=== PATIENT | male | born 1960 | race American Indian/Alaskan Native ===

== ENCOUNTER 2016-10-20 16:54 | Emergency (ER) | payer OTHER, MEDICARE ==
[2016-10-20 17:09] VITALS: RESP 18; TEMP 97.7; O2SAT 99
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
[2016-10-20 17:46] VITALS: BMI 34.2
[2016-10-20 18:05] VITALS: BP 128/79; PULSE 79
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
== END 2016-10-20 19:10 | disposition home or self-care (01) ==
LOC: ED 16:54
DX: M54.5 Low back pain (principal); I10 Essential (primary) hypertension; E11.9 Type 2 diabetes mellitus without complications; Z72.0 Tobacco use
CPT/HCPCS: 72110; 82948; 96372; 99283; J1885

== ENCOUNTER 2017-05-25 15:21 | Inpatient (IN) | payer MEDICARE, OTHER ==
[2017-05-25 15:37] VITALS: BMI 33.2
--- NOTE | 2017-05-25 15:48 | ED PDOC ---
Arrival/HPI - General Chief Complaint: Shortness Of Breath Time Seen by Provider: 05/25/17 15:31 Historian: Patient - History of Present Illness Narrative History of Present Illness (Text): 05/25/17 15:45 A 56 year old male, whose past medical history includes sarcoidosis, diabetes, hypertension, spinal fusion, presents to the emergency department complaining of shortness of breath for 2 weeks. Patient was waiting to see PMD at her office when he developed mild chest discomfort and diaphoresis. He reports that he felt faint and lightheadedness. Denies LOC. Patient was sent into the emergency room for further evaluation. Patient denies any loss of consciousness , fever, chills, nausea, vomiting, abdominal pain or an other complaints. PMD: Dr. Song Time/Duration: Other (2 weeks) Symptom Course: Unchanged Quality: Other Context: Home, Other Past Medical History - Provider Review Nursing Documentation Reviewed: Yes - Infectious Disease Hx of Infectious Diseases: None - Cardiac Hx Hypertension: Yes - Pulmonary Other/Comment: sarcoidosis - Neurological Hx Neurological Disorder: No - HEENT Hx HEENT Disorder: No - Renal Hx Renal Disorder: No - Endocrine/Metabolic Hx Diabetes Mellitus Type 2: Yes - Hematological/Oncological Hx Blood Disorders: No - Integumentary Hx Dermatological Disorder: No - Musculoskeletal/Rheumatological Hx Musculoskeletal Disorders: Yes Hx Spinal Stenosis: Yes - Gastrointestinal Hx Gastrointestinal Disorders: Yes - Genitourinary/Gynecological Hx Genitourinary Disorders: No - Psychiatric Hx Depression: No Hx Substance Use: No - Surgical History Other/Comment: Spinal fusion./neck - Anesthesia Hx Anesthesia: Yes Hx Anesthesia Reactions: No Hx Malignant Hyperthermia: No - Suicidal Assessment Feels Threatened In Home Enviroment: No Family/Social History - Physician Review Nursing Documentation Reviewed: Yes Family/Social History: No Known Family HX Smoking Status: Light Smoker < 10 Cigarettes Daily Hx Alcohol Use: Yes Hx Substance Use: No Substance used: cocaine, no longer uses. Hx Substance Use Treatment: No Allergies/Home Meds Allergies/Adverse Reactions: Allergies No Known Allergies Allergy (Verified 05/25/17 15:46) Home Medications: Home Meds Medication Instructions Recorded Confirmed Oxycodone HCl/Acetaminophen 10 mg PO QID PRN 08/27/16 05/25/17 [Percocet 10-325 mg Tablet] Prednisone [Deltasone] 10 mg PO DAILY 05/25/17 05/25/17 Review of Systems - Physician Review All systems were reviewed & negative as marked: Yes - Review of Systems Constitutional: absent: Fevers, Night Sweats Respiratory: SOB Cardiovascular: Chest Pain Gastrointestinal: absent: Abdominal Pain, Nausea, Vomiting Neurological: Other (lightheadedness) Endocrine: Diaphoresis Physical Exam Vital Signs Reviewed: Yes Vital Signs Temp Pulse Resp BP Pulse Ox 05/25/17 18:32 72 17 123/76 100 05/25/17 15:39 97.6 F 78 18 143/81 100 05/25/17 15:30 18 100 05/25/17 15:22 97.6 F 77 18 143/81 100 Temperature: Afebrile Blood Pressure: Normal Pulse: Regular Respiratory Rate: Normal Appearance: Positive for: Well-Appearing, Non-Toxic, Comfortable Pain Distress: None Mental Status: Positive for: Alert and Oriented X 3 Finger Stick Blood Glucose: 94 - Systems Exam Head: Present: Atraumatic, Normocephalic Pupils: Present: PERRL Extroacular Muscles: Present: EOMI Conjunctiva: Present: Normal Mouth: Present: Moist Mucous Membranes Neck: Present: Normal Range of Motion Respiratory/Chest: Present: Good Air Exchange, Wheezes (scant wheezes at bases) , Rales (scant crackles at bases). No: Respiratory Distress, Accessory Muscle Use Cardiovascular: Present: Regular Rate and Rhythm, Normal S1, S2. No: Murmurs Abdomen: Present: Normal Bowel Sounds. No: Tenderness, Distention, Peritoneal Signs Back: Present: Normal Inspection Upper Extremity: Present: Normal Inspection, NORMAL PULSES. No: Cyanosis, Edema Lower Extremity: Present: Normal Inspection, NORMAL PULSES. No: Edema, CALF TENDERNESS Neurological: Present: GCS=15, CN II-XII Intact, Speech Normal Skin: Present: Warm, Dry, Normal Color. No: Rashes Psychiatric: Present: Alert, Oriented x 3, Normal Insight, Normal Concentration Medical Decision Making ED Course and Treatment: 05/25/17 15:45 Impression: A 56 year old male with shortness of breath and chest discomfort. Plan: -- Chest xray -- Labs -- Aspirin -- Reassess and disposition Prior Visits: Notes and results from previous visits were reviewed. Patient had a stress test in 2010 which was negative and an echo in 2017 which showed short LVH otherwise grossly normal. Progress Notes: EKG shows NSR at 70 BPM with normal intervals, no acute ST changes. Interpreted by me. Report Date : 05/25/2017 16:17:31 Procedure: Chest xray Dictator : Felicity Ramon MD IMPRESSION: No active pulmonary disease. 05/25/17 16:22 Cxray negative 05/25/17 16:33 Trop x 1 negative. BNP WNL. Spoke to Dr. Song and will transder to tele observation 05/25/17 17:[address] Song, states to admit to telemetry observation for near-syncope. - Lab Interpretations Lab Results: 05/25/17 15:55 05/25/17 15:55 Lab Results 05/25/17 15:55: Sodium 141, Potassium 4.4, Chloride 102, Carbon Dioxide 35 H, Anion Gap 8 L, BUN 15, Creatinine 1.1, Est GFR ( Amer) > 60, Est GFR (Non -Af Amer) > 60, Random Glucose 106, Calcium 9.9, Phosphorus 4.6 H, Magnesium 2.1 , Total Bilirubin 0.6, AST 36, ALT 43, Alkaline Phosphatase 72, Total Creatine Kinase 669 H, CK-MB (CK-2) 12.8 H, CK-MB (CK-2) % 1.9 L, Troponin I < 0.01 D, NT-Pro-B Natriuret Pep 24.5, Total Protein 7.1, Albumin 3.9, Globulin 3.1, Albumin/Globulin Ratio 1.3 05/25/17 15:55: PT 12.0, INR 1.10 H, APTT 26.4 05/25/17 15:55: WBC 6.0 D, RBC 4.96, Hgb 15.2, Hct 46.2, MCV 93.1, MCH 30.6, MCHC 32.9, RDW 13.5, Plt Count 283, MPV 9.7, Gran % 39.3 L, Lymph % (Auto) 46.9 H, [place] % (Auto) 10.0 H, Eos % (Auto) 3.6, Baso % (Auto) 0.2, Gran # 2.37, Lymph # 2.8, [place] # 0.6, Eos # 0.2, Baso # 0.01 I have reviewed the lab results: Yes - RAD Interpretation Radiology Orders: 05/25/17 15:45 CHEST PORTABLE [RAD] Stat - Medication Orders Current Medication Orders: Acetaminophen (Tylenol 325mg Tab) 650 mg PO Q6H PRN PRN Reason: Fever >100.4 F Albuterol/Ipratropium (Duoneb 3 Mg/0.5 Mg (3 Ml) Ud) 3 ml IH [id number] WOOD Albuterol/Ipratropium (Duoneb 3 Mg/0.5 Mg (3 Ml) Ud) 3 ml IH [id number] WOOD Aspirin (Ecotrin) 81 mg PO DAILY WOOD Ceftriaxone Sodium (Rocephin 1 Gram Ivpb) 1 gm in 100 mls @ 100 mls/hr IVPB DAILY WOOD PRN Reason: Protocol Insulin Human Lispro (Humalog Med) 0 units SC ACHS WOOD PRN Reason: Protocol Methylprednisolone (Solu-Medrol) 30 mg IV Q12 WOOD Oxycodone/Acetaminophen (Percocet 10/325 Mg Tab) 5 tab PO QID PRN PRN Reason: Pain, severe (8-10) Discontinued Medications Aspirin (Aspirin Chewable) 324 mg PO STAT STA Stop: 05/25/17 15:47 Last Admin: 05/25/17 16:03 Dose: 324 mg - Scribe Statement The provider has reviewed the documentation as recorded by the Thanh Marino Provider Scribe Attestation: All medical record entries made by the Scribe were at my direction and personally dictated by me. I have reviewed the chart and agree that the record accurately reflects my personal performance of the history, physical exam, medical decision making, and the department course for this patient. I have also personally directed, reviewed, and agree with the discharge instructions and disposition. Disposition/Present on Arrival - Present on Arrival Any Indicators Present on Arrival: No History of DVT/PE: No History of Uncontrolled Diabetes: No Urinary Catheter: No History of Decub. Ulcer: No History Surgical Site Infection Following: None - Disposition Have Diagnosis and Disposition been Completed?: Yes Diagnosis: Near syncope Disposition: HOSPITALIZED Disposition Time: 15:39 Patient Plan: Observation Condition: FAIR
[2017-05-25 16:07] LABS: BASO # 0.01 K/mm3 (0.0-2.0); BASO % 0.2 % (0.0-3.0); EOS # 0.2 (0.0-0.7); EOS % 3.6 % (1.5-5.0); GRAN # 2.37 (1.4-6.5); GRAN % 39.3 % (50.0-68.0); HEMATOCRIT 46.2 % (42.0-52.0); LYMPH # 2.8 (1.2-3.4); LYMPH % 46.9 % (22.0-35.0); MEAN CELL VOLUME 93.1 fl (80.0-105.0); MEAN CORPUSCULAR HEMOGLOBIN 30.6 pg (25.0-35.0); MEAN CORPUSCULAR HGB CONC 32.9 g/dl (31.0-37.0); MEAN PLATELET VOLUME 9.7 fl (7.0-11.0); MONO # 0.6 (0.1-0.6); RED CELL DISTRIBUTION WIDTH 13.5 % (11.5-14.5)
[2017-05-25 16:17] LABS: ALB/GLOB RATIO 1.3 (1.1-1.8); ALKALINE PHOSPHATASE 72 U/L (38-126); ALT/SGPT 43 U/L (7-56); AST/SGOT 36 U/L (17-59); BILIRUBIN,TOTAL 0.6 mg/dL (0.2-1.3); BLOOD UREA NITROGEN 15 mg/dL (7-21); CALCIUM 9.9 mg/dL (8.4-10.5); CARBON DIOXIDE 35 mmol/L (21-33); CHLORIDE 102 mmol/L (98-107); GFR AFRICAN-AMERICAN > 60; GLUCOSE,RANDOM 106 mg/dL (70-110); MAGNESIUM 2.1 mg/dL (1.7-2.2); PHOSPHOROUS 4.6 mg/dL (2.5-4.5); POTASSIUM 4.4 mmol/L (3.6-5.0); SODIUM 141 mmol/L (132-148); TOTAL PROTEIN 7.1 g/dL (5.8-8.3)
--- NOTE | 2017-05-25 16:19 | RAD ---
HISTORY: Shortness of breath COMPARISON: 09/12/2016. FINDINGS: LUNGS: The lungs are well inflated and clear. PLEURA: No significant pleural effusion identified, no pneumothorax apparent. CARDIOVASCULAR: Normal. OSSEOUS STRUCTURES: No significant abnormalities. Status post ACDF in the lower cervical spine. VISUALIZED UPPER ABDOMEN: Normal. OTHER FINDINGS: None. IMPRESSION: No active pulmonary disease.
[2017-05-25 16:21] LABS: INR 1.1 (0.93-1.08); PARTIAL THROMBOPLASTIN TIME 26.4 Seconds (25.1-36.5)
[2017-05-25 16:31] LABS: TROPONIN I < 0.01 ng/mL
[2017-05-25] MEDS ORDERED: Oxycodone/Acetaminophen 10/325 mg Tab PO PRN (18:50)
[2017-05-25] MEDS: MethylPREDNISolone 40 mg Vial IV SCH (21:07)
[2017-05-25] MEDS: Albuterol-Ipratrop 3 mg / 0.5 (3 ml) UD IH SCH (21:07)
[2017-05-25] MEDS: Insulin Lispro (humaLOG) MEDIUM Coverage SC SCH (22:53)
--- NOTE | 2017-05-25 23:03 | CARD ---
APPROVED REPORT EKG Measurement Heart [id number] <Conclusion> Normal sinus rhythm Low voltage QRS Septal infarct, age undetermined Abnormal ECG
[2017-05-26 00:40] LABS: TROPONIN I 0.02 ng/mL
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
[2017-05-26 07:21] LABS: BASO # 0.01 K/mm3 (0.0-2.0); BASO % 0.2 % (0.0-3.0); GRAN # 5.01 (1.4-6.5); GRAN % 79.9 % (50.0-68.0); HEMATOCRIT 45.3 % (42.0-52.0); LYMPH % 15.9 % (22.0-35.0); MEAN CELL VOLUME 92.3 fl (80.0-105.0); MEAN CORPUSCULAR HEMOGLOBIN 30.1 pg (25.0-35.0); MEAN CORPUSCULAR HGB CONC 32.7 g/dl (31.0-37.0); MONO # 0.3 (0.1-0.6); RED CELL DISTRIBUTION WIDTH 13.2 % (11.5-14.5); WHITE BLOOD COUNT 6.3 10^3/ul (4.5-11.0)
[2017-05-26 07:36] LABS: ALB/GLOB RATIO 1.2 (1.1-1.8); ALKALINE PHOSPHATASE 84 U/L (38-126); ALT/SGPT 44 U/L (7-56); AST/SGOT 37 U/L (17-59); BILIRUBIN,TOTAL 0.4 mg/dL (0.2-1.3); BLOOD UREA NITROGEN 16 mg/dL (7-21); CALCIUM 9.3 mg/dL (8.4-10.5); CARBON DIOXIDE 29 mmol/L (21-33); CHLORIDE 101 mmol/L (98-107); GFR AFRICAN-AMERICAN > 60; GLUCOSE,RANDOM 210 mg/dL (70-110); MAGNESIUM 2.1 mg/dL (1.7-2.2); SODIUM 137 mmol/L (132-148); TOTAL PROTEIN 7.1 g/dL (5.8-8.3)
[2017-05-26 07:42] LABS: FREE T4 0.78 ng/dL (0.78-2.19)
[2017-05-26] MEDS: Albuterol-Ipratrop 3 mg / 0.5 (3 ml) UD IH SCH ×3 (07:52→14:01)
[2017-05-26 07:55] LABS: THYROID STIMULATING HORMONE 0.16 mIU/mL (0.46-4.68)
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
--- NOTE | 2017-05-26 09:13 | CT ---
PROCEDURE: CT HEAD WITHOUT CONTRAST. HISTORY: syncope COMPARISON: 09/09/2016 CT head TECHNIQUE: Axial computed tomography images were obtained through the head/brain without intravenous contrast. Radiation dose: Total exam DLP = 1453 mGy-cm. This CT exam was performed using one or more of the following dose reduction techniques: Automated exposure control, adjustment of the mA and/or kV according to patient size, and/or use of iterative reconstruction technique. FINDINGS: HEMORRHAGE: No intracranial hemorrhage. BRAIN: No mass effect or edema. No atrophy or chronic microvascular ischemic changes. VENTRICLES: Unremarkable. No hydrocephalus. CALVARIUM: Unremarkable. PARANASAL SINUSES: Unremarkable as visualized. No significant inflammatory changes. MASTOID AIR CELLS: Unremarkable as visualized. No inflammatory changes. OTHER FINDINGS: None. IMPRESSION: No acute findings
[2017-05-26] MEDS: MethylPREDNISolone 40 mg Vial IV SCH ×2 (10:01→21:45)
[2017-05-26] MEDS: cefTRIAXone 1 gm 1 GM/100 ML BAG IVPB SCH (10:02)
[2017-05-26] MEDS: Insulin Lispro (humaLOG) MEDIUM Coverage SC SCH ×4 (10:02→21:49)
[2017-05-26] MEDS: Oxycodone/Acetaminophen 10/325 mg Tab PO PRN ×2 (12:16→21:44)
--- NOTE | 2017-05-26 14:11 | PN ---
SUBJECTIVE: Patient is 56 years old, seen and examined, lying in bed, seems to be much better, still has cough and congestion, actively smoke. PHYSICAL EXAMINATION VITAL SIGNS: Afebrile. Pulse 80, respirations 20, blood pressure 122/74. LUNGS: Bilateral expiratory rhonchi. HEART: S1, S2, audible. ABDOMEN: Soft, obese, nontender. No rebound, no guarding. NEUROLOGIC: He is awake, alert, oriented, communicative, and ambulatory. LABORATORY DATA: WBC 6.3, hemoglobin 14.8, hematocrit 45, platelets 295. Chemistry: Sodium 137, potassium 5.0, chloride 101, CO2 of 29, BUN 16, creatinine 1.1, blood sugar of 195. Urine drug screen positive for cocaine. CT scan of the chest done is negative. ASSESSMENT: 1. Near syncope. 2. Drug abuse. 3. History of sarcoidosis. 4. Asthmatic bronchitis. PLAN: Continue patient on nebulizer treatment. Patient is on aspirin 81 daily. Continue Rocephin and steroid. Consult weight tester. He was told to be closely following up with the weight tester on periodic basis, but patient is very noncompliant. He admits that he should be following but he does not. It was reemphasized he is still smoker, and it was emphasized to quit smoking and he says he is working on it. Nallely Song MD
--- NOTE | 2017-05-26 17:21 | US ---
PROCEDURE: Bilateral carotid artery duplex ultrasound HISTORY: Carotid stenosis syncope PHYSICIAN(S): Iglesia Cummins MD. TECHNIQUE: Duplex sonography and color-flow Doppler were used to evaluate the carotid bifurcations and limited segments of the vertebral arteries bilaterally. The exam is limited by body habitus. FINDINGS: There is mild smooth heterogeneous plaque noted at the carotid bifurcations bilaterally. The peak systolic velocity in the proximal right internal carotid artery is 80 cm/sec. This corresponds to a 20 to 39% proximal right ICA stenosis. Normal systolic velocities are noted in the proximal right external carotid artery. There is antegrade flow in the right vertebral artery. The peak systolic velocity in the proximal left internal carotid artery is 87 cm/sec. This corresponds to a 20 to 39% proximal left ICA stenosis. Normal systolic velocities are noted in the proximal left external carotid artery. There is antegrade flow in the left vertebral artery. IMPRESSION: 1. Bilateral 20-39% proximal ICA stenoses. 2. Antegrade flow in both vertebral arteries. 3. Limited study.
[2017-05-27] MEDS: Albuterol-Ipratrop 3 mg / 0.5 (3 ml) UD IH SCH ×4 (01:46→20:52)
[2017-05-27] MEDS: Oxycodone/Acetaminophen 10/325 mg Tab PO PRN ×3 (06:25→21:21)
[2017-05-27] MEDS ORDERED: Albuterol-Ipratrop 3 mg / 0.5 (3 ml) UD IH PRN (07:15)
[2017-05-27] MEDS: Budesonide 0.5 mg/2 ml Inhal Susp UD IH SCH ×2 (07:32→20:52)
--- NOTE | 2017-05-27 07:56 | CON ---
PULMONARY CONSULTATION REFERRING PHYSICIAN: Dr. Song. REASON FOR CONSULTATION: Chronic obstructive pulmonary disease. HISTORY OF PRESENT ILLNESS: The patient is a 56-year-old male, with past medical history significant for chronic obstructive pulmonary disease, positive extensive smoking history-still smokes, sarcoidosis (in remission), diabetes mellitus, hypertension, spinal fusion, who presents to [facility] with a 1-week history of increasing shortness of breath at rest, dyspnea on exertion, cough, and sputum production. There is no history of chest pain, coughing up of blood, or chest pain-made worse with deep respirations. There is no history of temperatures, chills or infectious exposure. There is no history of night sweats, weight loss or appetite change prior to the above events. No history of leg or calf pains. The patient did have an episode of weakness and diaphoresis-while at Dr. Song's office. No history of syncope. No history of recent travel or trauma. REVIEW OF SYSTEMS: No history of nausea, vomiting or diarrhea. No acute urinary symptoms. No new musculoskeletal complaints. Rest of the review of systems negative. ALLERGIES: NO KNOWN ALLERGIES. SOCIAL HISTORY: Positive for extensive tobacco usage-still smokes. No alcohol. FAMILY HISTORY: No inheritable diseases. HOME MEDICATIONS: Include prednisone and Percocet. PHYSICAL EXAMINATION: GENERAL: The patient appears comfortable at rest. He is not short of breath. He is not using accessory muscles for breathing. VITAL SIGNS: (Last noted in the computer): Temperature is 97.6, pulse 84, respirations 17, blood pressure 141/73. Oxygen saturation on nasal cannula ranges between 95% to 100%. HEENT: Normocephalic and atraumatic. NECK: No JVD. CARDIOVASCULAR: Positive S1, S2. No S3 gallop. LUNGS: Decreased breath sounds at the bases. Scattered mild rhonchi and wheezing bilaterally are appreciated. EXTREMITIES: No clubbing, cyanosis or edema. Calves are nontender to palpation. GI: Abdomen is soft, nontender and nondistended. Bowel sounds are positive. SKIN: No acute rash. NEUROLOGIC: Limited at the present time. PERTINENT LABORATORY DATA: CAT scan of the chest was done on 05/25/2017. There is no acute pulmonary infiltrate noted. There is a linear scar/atelectasis noted at the right base. There is also a small (6 mm) nodule abutting the minor fissure, in the right middle lobe-unchanged from previous CAT scan. There is no lymphadenopathy. CBC: White count 6.3, hemoglobin 14.8, hematocrit 45.3, platelets of 295. Complete metabolic profile: Glucose 210. Rest of the metabolic profiles within normal limits. IMPRESSION: 1. Acute bronchitis. 2. Chronic obstructive pulmonary disease. 3. Sarcoidosis (in remission). 4. Solitary pulmonary nodule-right middle lobe. 5. Diabetes mellitus. PLAN: The patient presents to [facility] with a 1-week history of worsening pulmonary symptoms. In addition, as above, the patient did experience weakness and diaphoresis-while at Dr. Song's office-prior to being sent to the emergency room. I did review the CAT scan of the chest-as above. The scan does show a small pulmonary nodule in the right middle lobe-unchanged from previous exam. There are no acute changes. On physical exam, the patient is in [id number] bronchospasm. I will continue with the current nebulizer treatments and add inhaled Pulmicort this morning. I will also continue with the current intravenous steroids for now. The patient also admits to paroxysms of coughing. Therefore, I will add a q.2 hour nebulizer dosage/treatment to be used on a p.r.n. basis. The patient is strongly advised to stop his smoking. He agrees. Additional pulmonary intervention will be based on the clinical status of the patient. I will discuss the above with Dr. Song. Thank you very much for this pulmonary consultation. David Lake MD HARVEY
[2017-05-27] MEDS: Insulin Lispro (humaLOG) MEDIUM Coverage SC SCH ×4 (09:09→23:42)
[2017-05-27] MEDS: MethylPREDNISolone 40 mg Vial IV SCH ×2 (09:11→21:21)
[2017-05-27] MEDS: cefTRIAXone 1 gm 1 GM/100 ML BAG IVPB SCH (09:39)
[2017-05-27 17:17] VITALS: RESP 20
[2017-05-28] MEDS: Albuterol-Ipratrop 3 mg / 0.5 (3 ml) UD IH SCH ×3 (01:29→13:26)
[2017-05-28 04:06] VITALS: O2SAT 97
[2017-05-28] MEDS: Oxycodone/Acetaminophen 10/325 mg Tab PO PRN ×2 (06:30→14:11)
[2017-05-28] MEDS: Budesonide 0.5 mg/2 ml Inhal Susp UD IH SCH (07:36)
[2017-05-28] MEDS: Insulin Lispro (humaLOG) MEDIUM Coverage SC SCH ×2 (07:58→12:15)
[2017-05-28 09:10] VITALS: BP 137/80; PULSE 81; TEMP 98
[2017-05-28] MEDS: MethylPREDNISolone 40 mg Vial IV SCH (09:56)
[2017-05-28] MEDS: cefTRIAXone 1 gm 1 GM/100 ML BAG IVPB SCH (11:20)
--- NOTE | 2017-05-28 12:38 | PN ---
SUBJECTIVE: The patient is 56 years old, seen and examined, sitting in chair, comfortable. Still has scanty cough, but much better than before. PHYSICAL EXAMINATION VITAL SIGNS: He is afebrile, pulse 81, respirations 20, and blood pressure 145/96. LUNGS: Bilateral good airflow. No rhonchi or crackles. HEART: S1 and S2 audible. ABDOMEN: Soft and nontender. No rebound. No guarding. NEUROLOGIC: He is awake, alert, oriented, communicative, and ambulatory. LABORATORY DATA: Blood sugar is 171. ASSESSMENT: 1. Chronic obstructive pulmonary disease exacerbation. 2. Asthmatic bronchitis. 3. Status post near syncope. 4. Cocaine abuse. 5. History of sarcoidosis. PLAN: Currently, the patient is on nebulizer treatment. We will cut down his steroids, and if he remains stable, we will make a discharge plan in a.m. Nallely Song MD
--- NOTE | 2017-05-28 13:38 | PN ---
DATE: SUBJECTIVE: The patient appears very comfortable this morning. He is not short of breath at rest. OBJECTIVE: VITAL SIGNS: Temperature is 97.9, pulse is 88, respirations are 18, blood pressure is 138/78, and oxygen saturation on room air is 97%. HEENT: Normocephalic, atraumatic. No JVD. CARDIOVASCULAR: Positive S1, S2. No S3 or gallop. LUNGS: Improved breath sounds at the bases. Much less rhonchi. No wheezing this morning. EXTREMITIES: No clubbing, cyanosis or edema. Calves are nontender to palpation. GASTROINTESTINAL: Abdomen is soft, nontender, and nondistended. Bowel sounds are positive. SKIN: No acute rash. NEUROLOGIC: Limited at the present time. IMPRESSION: 1. Acute bronchitis. 2. Chronic obstructive pulmonary disease. 3. Sarcoidosis (in remission). 4. Solitary pulmonary nodule - right middle lobe. 5. Diabetes mellitus. PLAN: The patient appears very comfortable this morning. He is not short of breath at rest. He states to feeling much much better overall. On physical exam, his bronchospasm continues to resolve. In addition, there is no significant alveolar-arterial gradient. Oxygen saturation on room air is now 97%. I will continue the current nebulizer treatments and low-dose intravenous steroids (decreased yesterday) for now. The patient is for probable discharge in the near future. I have given him my card/information for a followup appointment. He fully agrees. Clinical status of the patient is significantly improved overall. I will discuss the above with Dr. Song. David Lake MD MTDD
--- NOTE | 2017-05-29 13:23 | DS ---
SUBJECTIVE: The patient is 56-year-old, seen and examined, lying in bed, seems to be comfortable, still has cough and congestion, and bringing thick yellow phlegm. PHYSICAL EXAMINATION: VITAL SIGNS: He is afebrile. Pulse 81, respirations 20, blood pressure 137/80. LUNGS: Bilateral few expiratory rhonchi. HEART: S1 and S2 audible. ABDOMEN: Soft, nontender, obese, no hepatosplenomegaly. NEUROLOGIC: He is awake, alert and oriented, communicative. LABORATORY DATA: His urine drug screen was positive for cocaine. ASSESSMENT: 1. History of sarcoidosis. 2. Asthmatic bronchitis. 3. Chronic obstructive pulmonary disease exacerbation. 4. Pulmonary nodule, right middle lobe. 5. Ghi-ptrojqx-hmmouspvv diabetes. 6. Drug abuse. PLAN: The patient is clinically stable. He wants to go home. I will discharge him on Levaquin 500 daily. He has nebulizing machine at home. I gave him cough medicine, Bromfed DM 1 teaspoon t.i.d. and Medrol Dosepak. I will follow up in the office in a week or two. He is advised to follow with Dr. Lake. Nallely Song MD
== END 2017-05-28 15:36 | disposition home or self-care (01) | DRG 192 ==
LOC: ED 15:21 → ERH 17:00 → 2RSO 23:44 → OBSVTOIN 05-26 15:32 → 5RSO 05-26 20:34
PROVIDERS: ADMIT Internal Medicine; ATTEND Internal Medicine
DX: J44.1 Chronic obstructive pulmonary disease with (acute) exacerbation (principal); I10 Essential (primary) hypertension; D86.9 Sarcoidosis, unspecified; J20.9 Acute bronchitis, unspecified; J44.0 Chronic obstructive pulmonary disease with (acute) lower respiratory infection; F14.10 Cocaine abuse, uncomplicated; Z98.1 Arthrodesis status; F17.200 Nicotine dependence, unspecified, uncomplicated; R40.2412 Glasgow coma scale score 13-15, at arrival to emergency department; Z87.81 Personal history of (healed) traumatic fracture; M50.30 Other cervical disc degeneration, unspecified cervical region; E09.9 Drug or chemical induced diabetes mellitus without complications; T38.0X5A Adverse effect of glucocorticoids and synthetic analogues, initial encounter; R91.1 Solitary pulmonary nodule

== ENCOUNTER 2017-08-06 19:15 | Emergency (ER) | payer MEDICARE, OTHER ==
[2017-08-06 19:15] VITALS: BMI 33.2
[2017-08-06 19:24] VITALS: RESP 18; TEMP 98.3
[2017-08-06] MEDS ORDERED: HYDROmorphone 1 mg/ml ISec IM STA ×2 (19:30→21:59)
[2017-08-06] MEDS ORDERED: TDAP Vaccine 0.5 mL Syr IM ONE (19:31)
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
[2017-08-06 21:34] VITALS: BP 147/95; PULSE 80; O2SAT 96
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
== END 2017-08-06 23:15 | disposition home or self-care (01) ==
LOC: ED 19:15
DX: S01.511A Laceration without foreign body of lip, initial encounter (principal); S02.40CA Maxillary fracture, right side, initial encounter for closed fracture; Y08.89XA Assault by other specified means, initial encounter; Y92.89 Other specified places as the place of occurrence of the external cause; Z23 Encounter for immunization
CPT/HCPCS: 12051; 70450; 70480; 72131; 90471; 90715; 96372; 99284; J1170

== ENCOUNTER 2017-08-17 15:01 | Inpatient (IN) | payer MEDICARE, OTHER ==
[2017-08-17] MEDS ORDERED: Albuterol-Ipratrop 3 mg / 0.5 (3 ml) UD IH STA (15:13)
[2017-08-17 15:19] VITALS: BMI 34.5
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
[2017-08-17] MEDS ORDERED: cefTRIAXone 1 gm 1 GM/100 ML BAG IVPB STA (15:27)
[2017-08-17 15:29] LABS: ARTERIAL BLOOD GAS HCO3 26.6 mmol/L (21-28); ARTERIAL BLOOD GAS HEMOGLOBIN 14.2 g/dL (11.7-17.4); ARTERIAL BLOOD GAS O2 CAPACITY 19.3 mL/dl (16-24); ARTERIAL BLOOD GAS O2 CONTENT 17.8 ML/dl (15-23); ARTERIAL BLOOD GAS O2 SAT 92.2 % (95-98); ARTERIAL BLOOD GAS PCO2 44 mm/Hg (35-45); ARTERIAL BLOOD GAS PH 7.39 (7.35-7.45)
[2017-08-17 15:44] LABS: BASO # 0.02 K/mm3 (0.0-2.0); BASO % 0.5 % (0.0-3.0); EOS # 0.1 (0.0-0.7); EOS % 2.1 % (1.5-5.0); GRAN # 2.04 (1.4-6.5); GRAN % 47.5 % (50.0-68.0); HEMOGLOBIN 14.7 g/dL (14.0-18.0); LYMPH # 1.1 (1.2-3.4); LYMPH % 24.5 % (22.0-35.0); MEAN CELL VOLUME 93.1 fl (80.0-105.0); MEAN CORPUSCULAR HEMOGLOBIN 30.7 pg (25.0-35.0); MEAN PLATELET VOLUME 9.7 fl (7.0-11.0); MONO # 1.1 (0.1-0.6); MONO % 25.4 % (1.0-6.0); PLATELET COUNT 280 10^3/uL (120.0-450.0); RBC 4.79 10^6/uL (3.5-6.1); RED CELL DISTRIBUTION WIDTH 13.7 % (11.5-14.5); WHITE BLOOD COUNT 4.3 10^3/ul (4.5-11.0)
--- NOTE | 2017-08-17 15:48 | RAD ---
HISTORY: sob COMPARISON: 08/11/2017 FINDINGS: LUNGS: No active pulmonary disease. PLEURA: No significant pleural effusion identified, no pneumothorax apparent. CARDIOVASCULAR: Normal. OSSEOUS STRUCTURES: No significant abnormalities. VISUALIZED UPPER ABDOMEN: Normal. OTHER FINDINGS: None. IMPRESSION: No active disease.
[2017-08-17 15:56] LABS: INR 1.12 (0.93-1.08); PARTIAL THROMBOPLASTIN TIME 30.8 Seconds (25.1-36.5); PROTHROMBIN TIME 12.8 SECONDS (9.4-12.5)
[2017-08-17 15:59] LABS: ALB/GLOB RATIO 1.1 (1.1-1.8); ALT/SGPT 44 U/L (7-56); AST/SGOT 41 U/L (17-59); BLOOD UREA NITROGEN 10 mg/dL (7-21); CALCIUM 9.1 mg/dL (8.4-10.5); GFR AFRICAN-AMERICAN > 60; GFR NON-AFRICAN AMERICAN > 60
[2017-08-17 16:07] LABS: TROPONIN I < 0.01 ng/mL
[2017-08-17 16:59] LABS: B-TYPE NATRIURETIC PEPTIDE 56.6 pg/mL (0-450); CK MB% 0.8 % (2.5-3.0); CK-MB 7.2 ng/mL (0.0-3.6)
[2017-08-17 17:03] LABS: ATYPICAL LYMPHOCYTE 2 % (0.0-0.0); EOSINOPHIL 3 % (0.0-3.0); LYMPHOCYTE 32 % (22.0-35.0); MONOCYTE 13 % (1.0-6.0); NEUTROPHIL 50 % (50.0-70.0)
--- NOTE | 2017-08-17 17:51 | CARD ---
APPROVED REPORT EKG Measurement Heart [id number] <Conclusion> Sinus tachycardia Low voltage QRS Borderline ECG
[2017-08-17] MEDS: Albuterol-Ipratrop 3 mg / 0.5 (3 ml) UD IH SCH (20:12)
--- NOTE | 2017-08-17 21:18 | CT ---
EXAM: CT Chest Without Intravenous Contrast CLINICAL HISTORY: 57 years old, male; Signs and symptoms; Shortness of breath; Additional info: SOB TECHNIQUE: Axial computed tomography images of the chest without intravenous contrast. All CT scans at this facility use one or more dose reduction techniques, viz.: automated exposure control; ma/kV adjustment per patient size (including targeted exams where dose is matched to indication; i.e. head); or iterative reconstruction technique. Coronal and sagittal reformatted images were created and reviewed. COMPARISON: CT - CHEST W/O CONTRAST 2017-05-26 08:19 FINDINGS: Limitations: Lack of intravenous contrast. Lungs: Mild atelectasis/scarring. No consolidation. Few nodules and/or focal scarring, up to 0.6 cm, grossly stable. Pleural space: No pneumothorax. No significant effusion. Heart: No cardiomegaly. No significant pericardial effusion. Bones/joints: Postsurgical changes of cervical spine. Several healed rib fractures. Degenerative changes of spine. Soft tissues: Mild gynecomastia. Vasculature: Unremarkable. No aneurysm. Lymph nodes: No pathologically enlarged lymph nodes. IMPRESSION: 1. No acute findings. 2. Pulmonary nodules. For low-risk patients consider a follow-up chest CT at 15-21 months. For high-risk patients (smoking history or other known risk factors) recommend follow-up chest CT at 15-21 months. If unchanged, no further follow-up. 3. Incidental/non-acute findings are described above.
[2017-08-17] MEDS: MethylPREDNISolone 40 mg Vial IV SCH (21:34)
[2017-08-17] MEDS: Oxycodone/Acetaminophen 10/325 mg Tab PO PRN (21:34)
[2017-08-17] MEDS ORDERED: Influenza Vaccine 60 mcg/0.5 mL SYR (4YR UP) IM ONE (22:19)
[2017-08-17] MEDS ORDERED: Pneumococcal 23-Valent Vaccine IM ONE (22:19)
[2017-08-18] MEDS: Albuterol-Ipratrop 3 mg / 0.5 (3 ml) UD IH SCH ×4 (01:04→19:47)
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
[2017-08-18] MEDS: Pantoprazole 40 mg EC Tab PO SCH (06:17)
[2017-08-18] MEDS: cefTRIAXone 1 gm 1 GM/100 ML BAG IVPB SCH (10:06)
[2017-08-18] MEDS: MethylPREDNISolone 40 mg Vial IV SCH ×2 (10:06→22:23)
[2017-08-18] MEDS: Benzocaine/Menthol (Cepacol) Lozenge MT PRN ×2 (10:15→22:24)
[2017-08-18] MEDS: Oxycodone/Acetaminophen 10/325 mg Tab PO PRN ×2 (13:09→19:19)
--- NOTE | 2017-08-18 14:12 | PN ---
DATE: SUBJECTIVE: The patient is 57 years old. Seen and examined lying in bed. He states his cough is a little better. Still has wheezing and bringing phlegm. No nausea or vomiting. No diarrhea. PHYSICAL EXAMINATION: VITAL SIGNS: He is afebrile, pulse 88, respirations 21, blood pressure 138/83. LUNGS: Bilateral expiratory rhonchi, diffuse, posteriorly more pronounced. HEART: S1 and S2 audible. ABDOMEN: Soft, obese, nontender. No rebound. No guarding. NEUROLOGIC: The patient is awake, alert, oriented. Able to communicate. LABORATORY EXAM: WBC IS 4.3, hemoglobin 14, hematocrit 44, platelet 280. Chemistry: Sodium 139, potassium 4.0, chloride 102, CO2 of 26, BUN 10, creatinine 1.1, blood sugar of 100, calcium 9.1. Blood sugar today morning at 11:00 a.m. is 140. Flu test is negative. ASSESSMENT: 1. Asthmatic bronchitis. 2. Sarcoidosis. 3. Chronic obstructive pulmonary disease. 4. Hca-pbchzyy-tykanocue diabetes. 5. Hypertension. PLAN: The patient has still wheezing and short of breath. We will change it to admission. Continue nebulizer treatment. Continue steroid. I will add metformin. I will continue insulin coverage. We will reevaluate in the a.m. Nallley Song MD
[2017-08-18 16:11] VITALS: RESP 20
[2017-08-19] MEDS: Albuterol-Ipratrop 3 mg / 0.5 (3 ml) UD IH SCH ×4 (01:24→19:54)
[2017-08-19 04:33] LABS: BARBITURATES, UR NEGATIVE (NEGATIVE); BENZODIAZEPINES, UR NEGATIVE (NEGATIVE); OPIATES, UR NEGATIVE (NEGATIVE); PHENCYCLIDINE, UR NEGATIVE (NEGATIVE)
[2017-08-19] MEDS: Oxycodone/Acetaminophen 10/325 mg Tab PO PRN ×2 (06:05→18:23)
[2017-08-19] MEDS: Benzocaine/Menthol (Cepacol) Lozenge MT PRN ×2 (06:05→18:13)
[2017-08-19] MEDS: Pantoprazole 40 mg EC Tab PO SCH (06:05)
[2017-08-19] MEDS: MethylPREDNISolone 40 mg Vial IV SCH ×2 (10:17→22:31)
[2017-08-19] MEDS: cefTRIAXone 1 gm 1 GM/100 ML BAG IVPB SCH (10:17)
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
[2017-08-20] MEDS: Albuterol-Ipratrop 3 mg / 0.5 (3 ml) UD IH SCH ×3 (01:36→13:21)
[2017-08-20] MEDS: Benzocaine/Menthol (Cepacol) Lozenge MT PRN ×2 (04:22→10:31)
[2017-08-20] MEDS: Oxycodone/Acetaminophen 10/325 mg Tab PO PRN ×2 (04:22→09:47)
[2017-08-20] MEDS: Pantoprazole 40 mg EC Tab PO SCH (05:38)
[2017-08-20 07:35] VITALS: BP 120/70; PULSE 84; TEMP 99.1; O2SAT 94
[2017-08-20] MEDS: MethylPREDNISolone 40 mg Vial IV SCH (09:43)
[2017-08-20] MEDS ORDERED: Cefpodoxime (Vantin) 200 mg Tab PO SCH (10:00)
--- NOTE | 2017-08-21 12:47 | DS ---
HISTORY OF PRESENT ILLNESS: Patient is 57 years old, seen and examined. Seems to be doing a lot better. No nausea or vomiting. No diarrhea. Fever and chills have gone. Cough and congestion is better. PHYSICAL EXAMINATION: VITAL SIGNS: . Temperature 99.1, pulse 84, respirations 20, blood pressure 120/70. LUNGS: Bilateral fair airflow. No rhonchi or crackle. HEART: S1 and S2 audible. ABDOMEN: Soft, obese, nontender. No rebound. No guarding. NEUROLOGIC: Patient is awake, alert, oriented, able to communicate. LABORATORY DATA: Urine drug test positive for cocaine. Flu test is negative. ASSESSMENT AND PLAN: 1. Asthmatic bronchitis. 2. Exertional dyspnea. 3. Hypertension. 4. Xhy-gcjnhot-osvsxmhmc diabetes. PLAN: Patient is being discharged home today. He has been discharged on doxycycline 100 mg twice a day and Medrol Dosepak and he will follow up in the office in a week or two. Nallely Song MD
== END 2017-08-20 14:57 | disposition home or self-care (01) | DRG 202 ==
LOC: ED 15:01 → ERH 16:44 → 5RSO 19:07 → OBSVTOIN 08-18 12:10
PROVIDERS: ADMIT Internal Medicine; ATTEND Internal Medicine
DX: J20.9 Acute bronchitis, unspecified (principal); J44.0 Chronic obstructive pulmonary disease with (acute) lower respiratory infection; J44.1 Chronic obstructive pulmonary disease with (acute) exacerbation; S02.401A Maxillary fracture, unspecified side, initial encounter for closed fracture; D86.9 Sarcoidosis, unspecified; E11.9 Type 2 diabetes mellitus without complications; I10 Essential (primary) hypertension; E78.00 Pure hypercholesterolemia, unspecified; E78.5 Hyperlipidemia, unspecified; R09.02 Hypoxemia; S01.511A Laceration without foreign body of lip, initial encounter; Z79.84 Long term (current) use of oral hypoglycemic drugs; Z87.440 Personal history of urinary (tract) infections; F17.210 Nicotine dependence, cigarettes, uncomplicated; Z98.1 Arthrodesis status

== ENCOUNTER 2018-05-28 10:36 | Inpatient (IN) | payer MEDICARE, OTHER ==
[2018-05-28 10:36] VITALS: BMI 33.2
--- NOTE | 2018-05-28 11:29 | RAD ---
Date of service: 05/28/2018 HISTORY: SOB COMPARISON: 08/17/2017 FINDINGS: LUNGS: No active pulmonary disease. PLEURA: No significant pleural effusion identified, no pneumothorax apparent. CARDIOVASCULAR: No aortic atherosclerotic calcification present. Normal cardiac size. No pulmonary vascular congestion. OSSEOUS STRUCTURES: No significant abnormalities. VISUALIZED UPPER ABDOMEN: Normal. OTHER FINDINGS: None. IMPRESSION: No active disease.
[2018-05-28] MEDS: Albuterol-Ipratrop 3 mg / 0.5 (3 ml) UD IH SCH ×3 (12:01→15:33)
[2018-05-28 12:07] LABS: BASO # 0.02 K/mm3 (0.0-2.0); BASO % 0.3 % (0.0-3.0); EOS # 0.8 (0.0-0.7); EOS % 14.2 % (1.5-5.0); GRAN # 2.32 (1.4-6.5); GRAN % 40.6 % (50.0-68.0); HEMOGLOBIN 14.5 g/dL (14.0-18.0); LYMPH # 2.1 (1.2-3.4); MEAN CELL VOLUME 92.7 fl (80.0-105.0); MEAN CORPUSCULAR HEMOGLOBIN 29.5 pg (25.0-35.0); MEAN CORPUSCULAR HGB CONC 31.8 g/dl (31.0-37.0); MEAN PLATELET VOLUME 9.8 fl (7.0-11.0); MONO # 0.5 (0.1-0.6); MONO % 8.9 % (1.0-6.0); RBC 4.92 10^6/uL (3.5-6.1); RED CELL DISTRIBUTION WIDTH 13.9 % (11.5-14.5); WHITE BLOOD COUNT 5.7 10^3/uL (4.5-11.0)
[2018-05-28 12:29] LABS: ALB/GLOB RATIO 1.1 (1.1-1.8); ALBUMIN 3.7 g/dL (3.0-4.8); ALT/SGPT 38 U/L (7-56); AST/SGOT 37 U/L (17-59); BLOOD UREA NITROGEN 12 mg/dL (7-21); CALCIUM 9.1 mg/dL (8.4-10.5); GFR NON-AFRICAN AMERICAN > 60
[2018-05-28 12:40] LABS: B-TYPE NATRIURETIC PEPTIDE 114 pg/mL (0-450); TROPONIN I < 0.01 ng/mL
[2018-05-28 12:51] LABS: CK MB% 1.4 % (2.5-3.0); CK-MB 12.1 ng/mL (0.0-3.6)
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
[2018-05-28] MEDS ORDERED: Albuterol-Ipratrop 3 mg / 0.5 (3 ml) UD IH PRN (13:16)
[2018-05-28] MEDS: Azithromycin 500MG/NS 250ml 500 MG/250 ML BAG IVPB SCH (15:02)
[2018-05-28] MEDS: POLYETHYLENE GLYCOL 3350 17 GM/Dose PACKET PO SCH (15:24)
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
[2018-05-28] MEDS: Oxycodone/Acetaminophen 5/325 mg Tab PO PRN ×2 (17:37→22:39)
[2018-05-28] MEDS: MethylPREDNISolone 40 mg Vial IV SCH (17:37)
[2018-05-28] MEDS: Insulin Reg-HIGH-Coverage SC SCH ×2 (17:38→22:26)
--- NOTE | 2018-05-28 19:43 | CARD ---
APPROVED REPORT Date of service: 05/28/2018 EKG Measurement Heart [id number] [place] [id number] <Conclusion> Normal sinus rhythm Low voltage QRS Borderline ECG
[2018-05-28] MEDS ORDERED: guaiFENesin 100 mg/5 ml Syrup UD PO STA (23:38)
[2018-05-29] MEDS: MethylPREDNISolone 40 mg Vial IV SCH ×4 (01:20→21:18)
[2018-05-29] MEDS: Albuterol-Ipratrop 3 mg / 0.5 (3 ml) UD IH SCH ×5 (01:41→20:50)
[2018-05-29] MEDS: Pantoprazole 40 mg EC Tab PO SCH (06:20)
[2018-05-29] MEDS: Oxycodone/Acetaminophen 5/325 mg Tab PO PRN ×3 (06:23→21:46)
[2018-05-29] MEDS: Insulin Reg-HIGH-Coverage SC SCH ×4 (08:57→21:41)
[2018-05-29] MEDS: POLYETHYLENE GLYCOL 3350 17 GM/Dose PACKET PO SCH (09:39)
[2018-05-29] MEDS: Azithromycin 500MG/NS 250ml 500 MG/250 ML BAG IVPB SCH (09:40)
[2018-05-29] MEDS: cefTRIAXone 1 gm 1 GM/100 ML BAG IVPB SCH (09:40)
[2018-05-29] MEDS: guaiFENesin 100 mg/5 ml Syrup UD PO PRN ×2 (11:42→20:18)
--- NOTE | 2018-05-29 22:13 | PN ---
DATE: 05/29/2018 SUBJECTIVE: The patient is 57 years old, seen and examined. He states he feels a lot better. He feels something is stuck in his throat, otherwise doing better. PHYSICAL EXAMINATION: VITAL SIGNS: He is afebrile, pulse 90, respirations 20, blood pressure 139/83. LUNGS: Bilateral expiratory rhonchi. HEART: S1 and S2 audible. ABDOMEN: Soft, obese, nontender. No rebound. No guarding. NEUROLOGICAL: The patient is awake, alert, oriented, communicative, ambulatory. ASSESSMENT: 1. History of sarcoidosis. 2. Systemic bronchitis. 3. Chronic obstructive pulmonary disease. 4. Vvj-jppqrih-iagrkdnmr diabetes. 5. Hypertension. 6. Moderate obesity. PLAN: I will order for ENT consult. Also order for CT scan of the chest and monitor blood sugar. We will follow up. Nallely Song MD
[2018-05-30] MEDS: Albuterol-Ipratrop 3 mg / 0.5 (3 ml) UD IH SCH ×5 (01:20→20:53)
[2018-05-30] MEDS: guaiFENesin 100 mg/5 ml Syrup UD PO PRN (01:21)
[2018-05-30] MEDS ORDERED: guaiFENesin-DM 600-30 mg ER Tab PO ONE (04:03)
[2018-05-30] MEDS: Pantoprazole 40 mg EC Tab PO SCH (06:09)
[2018-05-30] MEDS: MethylPREDNISolone 40 mg Vial IV SCH ×3 (06:09→21:46)
[2018-05-30] MEDS: Oxycodone/Acetaminophen 5/325 mg Tab PO PRN ×3 (06:12→23:38)
[2018-05-30 07:48] VITALS: RESP 20
[2018-05-30] MEDS: Insulin Reg-HIGH-Coverage SC SCH ×4 (08:37→21:47)
[2018-05-30] MEDS: cefTRIAXone 1 gm 1 GM/100 ML BAG IVPB SCH ×2 (09:35→11:05)
[2018-05-30] MEDS: Azithromycin 500MG/NS 250ml 500 MG/250 ML BAG IVPB SCH (09:36)
[2018-05-30] MEDS ORDERED: Oxycodone/Acetaminophen 5/325 mg Tab PO STA (09:49)
--- NOTE | 2018-05-30 11:12 | CT ---
Date of service: 05/29/2018 CT chest without IV contrast Indication: sob Technique: Contiguous axial images were obtained through the chest without intravenous contrast enhancement. Sagittal and coronal reconstructions were generated and reviewed. This CT exam was performed using 1 or more of the following dose reduction techniques: Automated exposure control, adjustment of the MAA and/or kV according to patient size, and/or use of iterative reconstruction technique. Radiation dose (DLP): 969.15 MGy-cm. Comparison: Chest x-ray performed 05/28/18, CT chest without contrast performed 08/17/17 and 05/26/17 Findings: Examination limited by motion and streak artifact. The unenhanced mediastinal and hilar vascular structures appear grossly unremarkable. The heart appears within normal limits of size. No atherosclerotic calcification identified. No focal consolidation. No pleural effusion. No pneumothorax. Scattered regions of atelectasis, most prominent within the dependent portions of the right lower lobe. Limited visualization of the noncontrast upper abdomen appears grossly unremarkable. Bilateral gynecomastia. Partially imaged posterior cervical fusion hardware with resultant streak artifact. Degenerative changes of the spine. Chronic left rib fracture deformities (3rd through 9th posterior). Impression: No acute findings identified. Incidental findings as above. Preliminary impression was provided by [employer]
[2018-05-30 17:15] VITALS: O2SAT 97
--- NOTE | 2018-05-30 18:32 | PN ---
DATE: 05/30/2018 SUBJECTIVE: The patient is 57 years old, seen and examined, doing well, eating and tolerating. The cough is much better than better, was seen by Dr. Harris. Had CT of the chest done that shows no new acute findings seen. IMPRESSION: 1. History of sarcoidosis. 2. Hypertension. 3. Utj-cwljthc-drmrgflsz diabetes. 4. Asthmatic bronchitis. PLAN: We will continue the patient on current medications except I will taper down steroid. Continue nebulizer treatment. as needed. We will follow up the patient in a.m. Nallely Song MD
[2018-05-30] MEDS ORDERED: Acetylcysteine 20% Inhal Soln (4ml) IH ONE (20:00)
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
[2018-05-31] MEDS: Albuterol-Ipratrop 3 mg / 0.5 (3 ml) UD IH SCH ×3 (02:20→13:29)
[2018-05-31] MEDS: Acetylcysteine 20% Inhal Soln (4ml) IH SCH ×3 (02:20→13:29)
[2018-05-31] MEDS: Pantoprazole 40 mg EC Tab PO SCH (05:31)
[2018-05-31] MEDS: Insulin Reg-HIGH-Coverage SC SCH ×3 (08:14→12:04)
[2018-05-31 08:18] VITALS: BP 129/76; TEMP 97.8
[2018-05-31] MEDS: Oxycodone/Acetaminophen 5/325 mg Tab PO PRN (08:20)
[2018-05-31] MEDS: MethylPREDNISolone 40 mg Vial IV SCH (09:47)
[2018-05-31] MEDS: POLYETHYLENE GLYCOL 3350 17 GM/Dose PACKET PO SCH (09:47)
[2018-05-31] MEDS: Azithromycin 500MG/NS 250ml 500 MG/250 ML BAG IVPB SCH (09:48)
[2018-05-31] MEDS ORDERED: Cefpodoxime (Vantin) 200 mg Tab PO SCH (10:00)
[2018-05-31 11:20] VITALS: PULSE 98
[2018-05-31] MEDS ORDERED: Influenza Vaccine 60 mcg/0.5 mL SYR (4YR UP) IM ONE (12:24)
--- NOTE | 2018-05-31 13:14 | DS ---
HISTORY OF PRESENT ILLNESS: Patient is 57-year-old, seen and examined. Still has cough and congestion, much better than before, able to breathe, minimal exertional dyspnea. PHYSICAL EXAMINATION: VITAL SIGNS: He is afebrile, pulse 91, respirations 20, blood pressure 129/76. LUNGS: Bilateral expiratory rhonchi. HEART: S1, S2 audible. ABDOMEN: Soft, nontender, obese. No hepatosplenomegaly. NEUROLOGIC: Patient is awake, alert, oriented, and communicative. LABORATORY DATA: Blood sugar 210. ASSESSMENT: 1. Chronic obstructive pulmonary disease exacerbation. 2. Asthmatic bronchitis. 3. Bronchospasm. 4. History of sarcoidosis. 5. Hypertension. 6. Niw-kcsagho-wntsjimdz diabetes. PLAN: The patient is being discharged home on his Medrol Dosepak and will be given 500 twice a day, and he will resume his medication including metformin. He will be given few pills of Percocet for his chronic back pain and he will follow up in my office. Nallely Song MD
== END 2018-05-31 14:07 | disposition home or self-care (01) | DRG 192 ==
LOC: ED 10:36 → ERH 12:52 → 3RSO 14:07
PROVIDERS: ADMIT Internal Medicine; ATTEND Internal Medicine
DX: J44.1 Chronic obstructive pulmonary disease with (acute) exacerbation (principal); D86.9 Sarcoidosis, unspecified; E11.9 Type 2 diabetes mellitus without complications; I10 Essential (primary) hypertension; M54.9 Dorsalgia, unspecified; G89.29 Other chronic pain; E66.01 Morbid (severe) obesity due to excess calories; K21.9 Gastro-esophageal reflux disease without esophagitis; E66.9 Obesity, unspecified; E78.00 Pure hypercholesterolemia, unspecified; E78.5 Hyperlipidemia, unspecified; F45.8 Other somatoform disorders; F17.210 Nicotine dependence, cigarettes, uncomplicated; Z87.01 Personal history of pneumonia (recurrent); Z87.440 Personal history of urinary (tract) infections; Z98.1 Arthrodesis status; Z68.34 Body mass index [BMI] 34.0-34.9, adult; Z23 Encounter for immunization

== ENCOUNTER 2018-07-05 13:04 | Inpatient (IN) | payer MEDICARE, OTHER ==
[2018-07-05] MEDS ORDERED: Albuterol-Ipratrop 3 mg / 0.5 (3 ml) UD IH STA (13:21)
[2018-07-05] MEDS ORDERED: Albuterol 0.5% Inhal Sol (2.5 mg/0.5 ml) UD IH STA (13:31)
[2018-07-05 13:42] LABS: BASO # 0.02 K/mm3 (0.0-2.0); BASO % 0.5 % (0.0-3.0); EOS # 0.3 (0.0-0.7); EOS % 6.5 % (1.5-5.0); GRAN # 1.26 (1.4-6.5); GRAN % 32.5 % (50.0-68.0); HEMOGLOBIN 15.3 g/dL (14.0-18.0); LYMPH # 1.7 (1.2-3.4); LYMPH % 44.2 % (22.0-35.0); MEAN CELL VOLUME 91.6 fl (80.0-105.0); MEAN CORPUSCULAR HEMOGLOBIN 29.3 pg (25.0-35.0); MEAN PLATELET VOLUME 9.9 fl (7.0-11.0); MONO # 0.6 (0.1-0.6); MONO % 16.3 % (1.0-6.0); RBC 5.22 10^6/uL (3.5-6.1); RED CELL DISTRIBUTION WIDTH 13.9 % (11.5-14.5); WHITE BLOOD COUNT 3.9 10^3/uL (4.5-11.0)
[2018-07-05 13:48] LABS: ALB/GLOB RATIO 1.2 (1.1-1.8); ALT/SGPT 76 U/L (7-56); AST/SGOT 54 U/L (17-59); BLOOD UREA NITROGEN 10 mg/dL (7-21); CALCIUM 8.8 mg/dL (8.4-10.5); GFR NON-AFRICAN AMERICAN > 60
[2018-07-05 13:56] LABS: B-TYPE NATRIURETIC PEPTIDE 65.8 pg/mL (0-450)
--- NOTE | 2018-07-05 14:02 | RAD ---
Date of service: 07/05/2018 HISTORY: sob COMPARISON: 05/28/2018 FINDINGS: LUNGS: No active pulmonary disease. PLEURA: No significant pleural effusion identified, no pneumothorax apparent. CARDIOVASCULAR: No aortic atherosclerotic calcification present. Normal cardiac size. No pulmonary vascular congestion. OSSEOUS STRUCTURES: No significant abnormalities. VISUALIZED UPPER ABDOMEN: Normal. OTHER FINDINGS: None. IMPRESSION: No active disease.
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
[2018-07-05] MEDS ORDERED: Albuterol 0.083% Inhal Sol (2.5 mg/3 mL) UD INH STA (14:19)
[2018-07-05 14:22] LABS: VENOUS BLOOD GAS BASE EXCESS 5.6 mmol/L (0.0-2.0); VENOUS BLOOD GAS PO2 72 mm/Hg (30-55); VENOUS BLOOD PH 7.36 (7.32-7.43)
[2018-07-05 16:06] LABS: BARBITURATES, UR NEGATIVE (NEGATIVE); BENZODIAZEPINES, UR NEGATIVE (NEGATIVE); OPIATES, UR NEGATIVE (NEGATIVE); PHENCYCLIDINE, UR NEGATIVE (NEGATIVE)
[2018-07-05] MEDS ORDERED: Albuterol-Ipratrop 3 mg / 0.5 (3 ml) UD IH PRN (16:36)
[2018-07-05] MEDS: cefTRIAXone 1 gm 1 GM/100 ML BAG IVPB SCH (17:58)
[2018-07-05] MEDS: Oxycodone/Acetaminophen 5/325 mg Tab PO PRN (18:09)
[2018-07-05 20:04] VITALS: BMI 31.8
[2018-07-05] MEDS ORDERED: Pneumococcal 23-Valent Vaccine IM ONE (20:04)
[2018-07-05] MEDS ORDERED: Influenza Vaccine 60 mcg/0.5 mL SYR (4YR UP) IM ONE (20:04)
--- NOTE | 2018-07-05 20:18 | HP ---
DATE OF EXAM: 07/05/2018 HISTORY OF PRESENT ILLNESS: The patient is a 57-year-old who was brought to emergency room by his friends because of increasing shortness of breath, cough, and congestion. The patient states he has been using his nebulizer, using his cough medication and inhaler with no significant relief, and he also states that he has some leftover prednisone, even he tried that. Denies any hemoptysis. No hematemesis. No nausea, vomiting. No diarrhea. No fever. No chills. PAST MEDICAL HISTORY: Significant for: 1. Sarcoidosis. 2. Chronic back pain. 3. History of lumbosacral discectomy. 4. COPD. 5. Wry-pvftfqp-djcmnyhbs diabetes. 6. Hypertension. ALLERGIES: HE IS NOT ALLERGIC TO ANY MEDICATION. MEDICATIONS AT HOME: He is on Percocet as needed, metformin 500 twice a day, aspirin 81 daily. SOCIAL HISTORY: He still smokes. He uses drugs. He did sniff cocaine a couple of months ago. PHYSICAL EXAMINATION GENERAL: He is awake, alert, oriented, communicative. VITAL SIGNS: The patient is afebrile, pulse 86, respirations 18, blood pressure 131/88. LUNGS: Bilateral fair airflow. No rhonchi or crackle. HEART: S1 and S2 audible. ABDOMEN: Soft, nontender. No rebound. No guarding. NEUROLOGICAL: The patient is awake, alert, oriented, communicative. LABORATORY EXAM: WBC 3.9, hemoglobin 15, hematocrit 47, platelet 276. Chemistry: Sodium 139, potassium 4.4, chloride 103, CO2 of 30, BUN 10, creatinine 1.0, blood sugar 140. LFTs are within normal limit. Urine: Positive for cocaine. ASSESSMENT: 1. Chronic obstructive pulmonary disease exacerbation. 2. Asthmatic bronchitis. 3. Hypertension. 4. Nrm-trnhfsz-zmkvdvjwe diabetes. 5. Drug abuse. PLAN: We will start the patient on IV steroid, continue nebulizer treatment, and started on doxycycline and Rocephin. We will monitor blood sugar. We will follow up the patient in a.m. Nallely Song MD [facility] # [id number]
[2018-07-05] MEDS: MethylPREDNISolone 40 mg Vial IV SCH (21:22)
[2018-07-05] MEDS: Albuterol-Ipratrop 3 mg / 0.5 (3 ml) UD IH SCH (21:45)
[2018-07-05] MEDS ORDERED: MethylPREDNISolone 40 mg Vial IV SCH (22:00)
[2018-07-05] MEDS: Insulin Lispro (HUMAlog) HIGH Coverage SC SCH (23:48)
--- NOTE | 2018-07-06 01:12 | CARD ---
APPROVED REPORT Date of service: 07/05/2018 EKG Measurement Heart [id number] [id number] <Conclusion> Normal sinus rhythm Low voltage QRS complexes Abnormal ECG
[2018-07-06] MEDS: guaiFENesin DM 100 mg-10 mg/5 ml UD PO PRN ×2 (01:38→08:22)
[2018-07-06] MEDS: Oxycodone/Acetaminophen 5/325 mg Tab PO PRN ×2 (01:41→08:22)
[2018-07-06] MEDS: Albuterol-Ipratrop 3 mg / 0.5 (3 ml) UD IH SCH ×4 (03:45→21:13)
[2018-07-06] MEDS: MethylPREDNISolone 40 mg Vial IV SCH ×3 (06:25→21:38)
[2018-07-06] MEDS: Insulin Lispro (HUMAlog) HIGH Coverage SC SCH ×4 (08:18→22:00)
[2018-07-06] MEDS: cefTRIAXone 1 gm 1 GM/100 ML BAG IVPB SCH (09:11)
[2018-07-06] MEDS: Oxycodone/Acetaminophen 10/325 mg Tab PO PRN (17:23)
--- NOTE | 2018-07-06 19:01 | PN ---
DATE: 07/06/2018 SUBJECTIVE: The patient is a 57-year-old, seen and examined. Still has cough and congestion. He is unable to expectorate. Still feels short of breath. PHYSICAL EXAMINATION VITAL SIGNS: He is afebrile, pulse 76, respirations 18, and blood pressure 124/68. LUNGS: Bilateral fair airflow. No rhonchi or crackle. HEART: S1, S2 audible. ABDOMEN: Soft, nontender. No rebound. No guarding. Obese. NEUROLOGICAL: He is awake, alert, oriented, and communicative. LABORATORY DATA: Chemistry: Blood sugar is 281. Urine tox positive for cocaine. ASSESSMENT AND PLAN: 1. Chronic obstructive pulmonary disease exacerbation. 2. Bronchospasm. 3. Cyx-ahbrczi-xtzllqvpm diabetes. 4. Hypertension. 5. Hyperlipidemia. 6. History of sarcoidosis. PLAN: We will add Mucomyst. Continue nebulizer treatment. He is on doxycycline. Monitor his blood sugar. . We will follow up in a.m. Nallely Song MD
[2018-07-06] MEDS: Acetylcysteine 20% Inhal Soln (4ml) IH PRN (21:13)
[2018-07-07] MEDS: Albuterol-Ipratrop 3 mg / 0.5 (3 ml) UD IH SCH ×4 (01:06→21:12)
[2018-07-07] MEDS: MethylPREDNISolone 40 mg Vial IV SCH ×3 (06:10→22:17)
[2018-07-07] MEDS: Acetylcysteine 20% Inhal Soln (4ml) IH PRN ×3 (07:31→21:12)
[2018-07-07] MEDS: Insulin Lispro (HUMAlog) HIGH Coverage SC SCH ×4 (07:56→22:11)
[2018-07-07] MEDS: Oxycodone/Acetaminophen 10/325 mg Tab PO PRN ×2 (09:56→22:31)
[2018-07-07] MEDS: Cefpodoxime (Vantin) 200 mg Tab PO SCH ×2 (09:56→22:18)
--- NOTE | 2018-07-07 14:04 | PN ---
DATE: 07/07/2018 SUBJECTIVE: The patient is a 57-year-old, who is seen and examined. Still has cough and congestion. Still gets short of breath on walking small distance, complained of hoarse voice, complained of feeling something stuck in the back of the throat. PHYSICAL EXAMINATION VITAL SIGNS: He is afebrile, pulse 95, respirations 20, and blood pressure 150/90. LUNGS: Bilateral expiratory rhonchi. HEART: S1 and S2 audible. ABDOMEN: Soft, obese, and nontender. No rebound. No guarding. NEUROLOGICAL: The patient is awake, alert, oriented, and communicative. ASSESSMENT: 1. Chronic obstructive pulmonary disease exacerbation. 2. Sarcoidosis. 3. History of left multiple chest rib fractures, they have healed. 4. Sgb-vjiqsyc-lmiuowdeh diabetes. 5. Hypertension. 6. Hyperlipidemia. PLAN: We will continue the patient on intravenous steroids. Continue antibiotics. We will continue to monitor blood sugar and blood pressure and adjust the medication. Get ENT evaluation for possible laryngoscopy . Nallely Song MD
--- NOTE | 2018-07-07 19:45 | CON ---
DATE: 07/07/2018 HISTORY OF PRESENT ILLNESS: This 57-year-old male who has been by ENT previously. This 57-year-old male who was brought to the emergency room because of increasing shortness of breath, cough, and congestion by his friends has been utilizing his nebulizer, but the cough has been progressing. No significant relief and states that he has had left over prednisone even tried that. Patient denies any hemoptysis, vomiting, nausea, diarrhea. PAST MEDICAL HISTORY: Positive for sarcoidosis, chronic back pain, COPD. ALLERGIES: HE IS NOT ALLERGIC TO ANY MEDICATIONS. MEDICATIONS: He is on Percocet, metformin, and aspirin. SOCIAL HISTORY: He is a smoker. PHYSICAL EXAMINATION: ENT: Normal. HEAD AND NECK: Normal. LABORATORY DATA: He has white count. H and H was normal. ASSESSMENT: 1. Chronic obstructive pulmonary disease. 2. Sarcoidosis. 3. Acute asthmatic bronchitis. 4. Hypertension. 5. Drug abuse. PLAN: This 57-year-old male very well known to ENT. He had previous scope within the last few months with noted signs and symptoms of gastroesophageal reflux disease and was treated with resolution of symptoms at that time. The patient is now seen with family member at bedside with a clear voice. He has bouts of cough, but states that he is also coughing with swallowing of liquids and/or solids. No history of barium swallow done. The patient discussed in detail to followup as an outpatient with Dr. Jose Luis Stephen. Impression at this time gastroesophageal reflux disease, acute bronchitis/obstructive pulmonary disease, acute asthmatic bronchitis. We will treat reflux disease with Dexilant daily as well as we will order a barium swallow to see if there is any type of reflux and/or obstructive disease at this point. His previous scope was within normal limits except for noted reflux. Jim Stephen DO
[2018-07-07 22:40] VITALS: O2SAT 95
[2018-07-08] MEDS: Albuterol-Ipratrop 3 mg / 0.5 (3 ml) UD IH SCH ×3 (01:43→14:04)
[2018-07-08] MEDS: guaiFENesin DM 100 mg-10 mg/5 ml UD PO PRN (02:35)
[2018-07-08] MEDS: MethylPREDNISolone 40 mg Vial IV SCH (05:43)
[2018-07-08] MEDS ORDERED: Pantoprazole 40 mg EC Tab PO SCH (06:00)
[2018-07-08 09:27] VITALS: BP 114/70; PULSE 91; RESP 18; TEMP 98.3
[2018-07-08] MEDS: Insulin Lispro (HUMAlog) HIGH Coverage SC SCH (11:04)
[2018-07-08] MEDS: Oxycodone/Acetaminophen 10/325 mg Tab PO PRN (11:14)
[2018-07-08] MEDS: Cefpodoxime (Vantin) 200 mg Tab PO SCH (11:17)
--- NOTE | 2018-07-09 08:31 | DS ---
HISTORY OF PRESENT ILLNESS: The patient is a -[id number], who came in because of increase in cough, congestion and shortness of breath. The patient does admit using cocaine during [employer] and he became acutely short of breath, he came to emergency room. PAST MEDICAL HISTORY: The patient has history of: 1. COPD. 2. Insulin-dependent diabetes. 3. Hypertension. 4. Hyperlipidemia. 5. Sarcoidosis. MEDICATIONS: The patient is not very compliant with his medication. PHYSICAL EXAMINATION: GENERAL: On examination today, he is awake, alert, oriented and communicative. VITAL SIGNS: He is afebrile, pulse 91, respirations 18 and blood pressure 114/70. LUNGS: Bilateral fair airflow. Few occasional expiratory rhonchi. HEART: S1 and S2, audible. ABDOMEN: Soft and nontender. No rebound. No guarding. NEUROLOGIC: He is awake, alert, oriented, communicative and ambulatory. ASSESSMENT: 1. Chronic obstructive pulmonary disease exacerbation. 2. Cocaine abuse. 3. Sarcoidosis. 4. Hypertension. 5. Hyperlipidemia. 6. Yzc-[id number]-epggodblv diabetes. PLAN: The patient will be discharged home today. We will discharge him on doxycycline 100 mg twice a day for a week. He will get his nebulizer treatments and he will resume his metformin and we will give him tapering dose of prednisone and give him Vantin 200 twice a day for 5 days. We will follow up the patient as outpatient. Nallely Song MD
== END 2018-07-08 14:27 | disposition home or self-care (01) | DRG 192 ==
LOC: ED 13:04 → ERH 14:37 → 5RSO 16:54
PROVIDERS: ADMIT Internal Medicine; ATTEND Internal Medicine
PROC: 3E0F7GC Introduction of Other Therapeutic Substance into Respiratory Tract, Via Natural or Artificial Opening (ICD-10-PCS; principal; 2018-07-05)
DX: J44.1 Chronic obstructive pulmonary disease with (acute) exacerbation (principal); D86.9 Sarcoidosis, unspecified; F14.10 Cocaine abuse, uncomplicated; E11.9 Type 2 diabetes mellitus without complications; I10 Essential (primary) hypertension; E78.5 Hyperlipidemia, unspecified; F17.200 Nicotine dependence, unspecified, uncomplicated; K21.9 Gastro-esophageal reflux disease without esophagitis; Z79.82 Long term (current) use of aspirin; Z98.1 Arthrodesis status

== ENCOUNTER 2018-08-10 10:49 | Outpatient (CLI) | payer MEDICARE, OTHER | END 2018-08-10 10:50 | disposition home or self-care (01) | LOC: RAD 10:49 ==

== ENCOUNTER 2018-09-07 11:01 | Outpatient (CLI) | payer MEDICARE, OTHER | END 2018-09-07 11:02 | disposition home or self-care (01) | LOC: PULMO 11:01 ==